=== PATIENT | female | born 1955 | race Caucasian/White ===

== ENCOUNTER → 2016-11-04 | Outpatient (CLI) | payer OTHER ==
--- NOTE | 2016-11-04 14:14 | KCIC ---
MR CERVICAL SPINE HISTORY:Reason For StudyReason: BILATERAL HAND NUMBNESS AND NECK PAIN / Spl. Instructions: / History: Neck pain, numbness to hands. Sx for a few months. Technique: Sagittal T2, sagittal STIR, sagittal T1, and axial gradient echo imaging was obtained of the cervical spine. FINDINGS: There is severe spinal stenosis with mass effect upon the cord at the level of C3-C4. 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 The severe stenosis at C3-C4 is the result of a broad-based disc protrusion and ligamentum flavum thickening. There is no evidence for cord edema this time. There is some bone marrow edema of the adjoining endplates at C3-C4. At C4-C5 there is a disc osteophyte complex which abuts the ventral surface of the cord but does not cause mass effect upon it. At C5-C6 there is bilateral uncovertebral hypertrophy but no high-grade spinal stenosis. C6-C7 there is very subtle anterolisthesis. No spinal stenosis. A small disc osteophyte complex is noted. At C7-T1 there is anterolisthesis but no spinal stenosis. Impression: - There is severe central spinal stenosis with mass effect upon the cord at the level of C3-C4. No cord signal abnormality at this time. - Klippel-Feil anomaly of C2-C3. - Other multilevel degenerative changes per level as above. Electronically signed by: Ramon Cee (November 04, 2016 14:13:02)
== END | disposition home or self-care (01) ==
LOC: KCIC MRI 12:36
PROVIDERS: ATTEND Physician Assistant
DX: M48.06 Spinal stenosis, lumbar region (principal); M54.2 Cervicalgia; R20.0 Anesthesia of skin; M47.892 Other spondylosis, cervical region
CPT/HCPCS: 72141

== ENCOUNTER → 2021-02-15 | Outpatient (CLI) | payer OTHER ==
--- NOTE | 2021-02-15 15:48 | KCIC ---
EXAM: Cervical spine MRI without contrast. HISTORY: Pain. TECHNIQUE: Multiplanar, multisequence magnetic resonance imaging of the cervical spine was performed without contrast. COMPARISON: 11/04/2016. FINDINGS: There is instrumented anterior spinal fusion and interbody fusion at C3-C4. There is bony b ridging across the disc space at this level. There is 3 mm anterolisthesis of C6 on C7, C7 on T1 and T1 on T2. There is multilevel endplate remodeling with disc space narrowing, osteophytosis and Schmor l's node formation. There is congenital fusion at C2-C3. There is deformation of the cervical spinal cord at multiple levels due to central canal stenosis. No convincing spinal cord edema or myelomalaci a is seen. There is no acute or subacute fracture or suspicious osseous lesion. The posterior fossa a nd skull base are unremarkable. At C2-C3, there is congenital fusion. There is no stenosis. At C3-C4, there is instrumented anterior spinal fusion and interbody fusion with bony bridging across the disc space. There is also fusion of the facet joints at this level. There is buckling of the lig amentum flavum. There is no stenosis. At C4-C5, there is a right paracentral disc protrusion superimposed on a disc bulge and endplate oste ophytosis. There is severe right and mild left facet arthropathy. There is bilateral uncovertebral ar thropathy. There is buckling of the ligamentum flavum. There is moderate right and mild left foramina l stenosis. There is flattening of the ventral aspect of the spinal cord and moderate central canal s tenosis measuring 7.7 mm in anterior posterior dimension. At C5-C6, there is a disc bulge and endplate osteophytosis. There is moderate bilateral facet arthrop athy. There is bilateral uncovertebral arthropathy. There is mild left foraminal stenosis. There is m ild central canal stenosis measuring 8.8 mm in anterior posterior dimension. At C6-C7, there is a disc bulge and endplate osteophytosis. There is severe bilateral facet arthropat hy. There is bilateral uncovertebral arthropathy. There is mild right foraminal stenosis. There is de formation of the ventral aspect of spinal cord and mild central canal stenosis measuring 9.1 mm in an terior posterior dimension. At C7-T1, there is severe left and moderate right facet arthropathy. There is no stenosis. At T1-T2, there is right posterior lateral predominant endplate remodeling. There is moderate right f acet arthropathy. There is no stenosis. At T2-T3, there is a disc bulge and endplate osteophytosis. There is no stenosis. IMPRESSION: 1. Multilevel degenerative change involving the cervical spine, described in detail above. This resul ts in moderate right and mild left foraminal and moderate central canal stenosis at C4-C5, mild left foraminal and central canal stenosis at C3-C6, and mild right foraminal and central canal stenosis at C6-C7. These degenerative changes and degrees of stenosis have slightly increased increased compared to the prior exam. 2. Slight deformation of the cervical spinal cord at multiple levels due to central canal stenosis. N o spinal cord signal abnormality is seen to suggest edema or myelomalacia. There is suggestion of sli ght T2 hyperintensity within the cervical spinal cord at C4-C5 on sagittal images which does not pers ist on axial images and is likely artifactual 3. Multilevel degenerative listhesis. 4. Instrumented fusion at C3-C4 and congenital fusion at C2-C3. There has been interval resolution of previously demonstrated central canal stenosis at C3-C4. Electronically signed by: Tiffany Luciano MD (02/15/2021 3:45 PM) [id number]
== END ==
LOC: KCIC MRI 14:01
PROVIDERS: ATTEND Family Medicine
DX: M47.812 Spondylosis without myelopathy or radiculopathy, cervical region (principal); M48.02 Spinal stenosis, cervical region; M43.12 Spondylolisthesis, cervical region; Z98.1 Arthrodesis status; M48.8X2 Other specified spondylopathies, cervical region; M50.222 Other cervical disc displacement at C5-C6 level; M48.8X3 Other specified spondylopathies, cervicothoracic region; M25.78 Osteophyte, vertebrae
CPT/HCPCS: 72141